=== PATIENT | male | born 1980 | race African-American/Black ===

== ENCOUNTER 2024-06-21 17:15 | Emergency (ER) | payer SELFPAY ==
[~2024-06-21] VITALS: Ht 190.5 cm; Wt 69.0 kg
[2024-06-21 17:17] VITALS: O2SAT 99
[2024-06-21 17:32] VITALS: BP 110/79; PULSE 60; RESP 16; TEMP 36.9; O2SAT 100
== END 2024-06-21 19:33 | disposition home or self-care (01) ==
LOC: ER 17:15
DX: R42 Dizziness and giddiness (principal); R51.9 Headache, unspecified
CPT/HCPCS: 99284

== ENCOUNTER 2024-10-04 21:42 | Emergency (ER) | payer MEDICAID ==
[~2024-10-04] VITALS: Ht 182.9 cm; Wt 93.0 kg
[2024-10-04 21:48] VITALS: O2SAT 99
[2024-10-04] MEDS ORDERED: TETANUS, DIPHTHERIA, PERTUSSIS VAC/PF 0.5ML (>10YR OLD) IM ONE (22:15)
[2024-10-04] MEDS ORDERED: LIDOCAINE HCL 1% 20ML VIAL INFIL ONE (22:15)
[2024-10-04] MEDS: ACETAMINOPHEN 500MG TABLET PO ONE (22:45)
[2024-10-04] MEDS: SODIUM CHLORIDE 0.9% 1,000 ML IV ONE (22:46)
[2024-10-04 22:56] VITALS: TEMP 36.6
[2024-10-04 23:57] LABS: BASOPHILS % 0.4 % (0.0-2.0); EOSINOPHILS % 0.9 % (0.0-5.0); HEMATOCRIT. 36.1 % (42.0-52.0); HEMOGLOBIN. 11.9 g/dL (14.0-18.0); LYMPHOCYTES % 13.8 % (20.0-50.0); MEAN PLATELET VOLUME 8.3 fl (7.4-10.4); MONOCYTES % 4.5 % (2.0-8.0); NEUTROPHILS % 80.4 % (40.0-76.0); PLATELET 163 x1000/uL (130-400); RED BLOOD CELL COUNT 4.20 mill/uL (4.7-6.1); RED CELL DISTRIBUTION WIDTH 14.0 % (11.6-14.6)
[2024-10-05 00:08] LABS: INR 1.0
[2024-10-05 00:11] LABS: CREATININE 0.9 mg/dL (0.6-1.3)
[2024-10-05 00:12] LABS: ETHANOL BLOOD < 10 mg/dL (<10); UREA NITROGEN BLOOD 9 mg/dL (9-23)
[2024-10-05 00:13] LABS: ASPARTATE AMINOTRANSFERASE 23 IU/L (<34)
[2024-10-05 00:14] LABS: BILIRUBIN DIRECT 0.1 mg/dL (<=3.0); BILIRUBIN TOTAL 0.3 mg/dL (0.1-1.0); PROTEIN TOTAL 5.9 g/dL (6.0-8.3)
[2024-10-05 01:56] LABS: *AMPHETAMINES SCREEN URINE NEGATIVE (NEGATIVE); *BARBITURATES SCREEN URINE NEGATIVE (NEGATIVE); *BENZODIAZEPINES SCREEN URINE NEGATIVE (NEGATIVE); *COCAINE SCREEN URINE NEGATIVE (NEGATIVE); CANNABINOID URINE SCREEN PRESUMPTIVE POSITIVE (NEGATIVE); ECSTASY MDMA SCREEN URINE NEGATIVE (NEGATIVE); METHADONE URINE SCREEN NEGATIVE (NEGATIVE); OPIATES URINE SCREEN NEGATIVE (NEGATIVE); PHENCYCLIDINE URINE SCREEN NEGATIVE (NEGATIVE)
[2024-10-05] MEDS ORDERED: LIDOCAINE HCL 1% 20ML VIAL INFIL SCH (02:00)
[2024-10-05] MEDS: TETANUS, DIPHTHERIA, PERTUSSIS VAC/PF 0.5ML (>10YR OLD) IM ONE (02:10)
[2024-10-05 03:10] VITALS: BP 120/64; PULSE 35; RESP 11; O2SAT 100
== END 2024-10-05 03:09 | disposition home or self-care (01) ==
LOC: ER 21:42
DX: S01.511A Laceration without foreign body of lip, initial encounter (principal); R55 Syncope and collapse; F12.10 Cannabis abuse, uncomplicated; Z79.899 Other long term (current) drug therapy; X58.XXXA Exposure to other specified factors, initial encounter; Y93.89 Activity, other specified; Y92.89 Other specified places as the place of occurrence of the external cause; Y99.8 Other external cause status
CPT/HCPCS: 80076; 80048; 80320; 85025; 85610; 85730; 36415; 40650; 96360; 96361; 99285; 80305; 70450; J7030; J2003; G0480